=== PATIENT | female | born 1980 | race Caucasian/White ===

== ENCOUNTER → 2017-10-13 | Outpatient (CLI) | payer OTHER ==
--- NOTE | 2017-10-13 15:48 | MR ---
EXAMINATION TYPE: MR knee RT wo con DATE OF EXAM: 10/13/2017 COMPARISON: NONE HISTORY: Right Knee pain, Swelling, and Locking x6 years TECHNIQUE: Multiplanar, multisequence imaging of the right knee is performed without IV contrast. FINDINGS: MEDIAL MENISCUS: Moderate diffuse increased signal present within the posterior horn of the medial me niscus, linear signal does extend to the articular surface, there is pseudoextrusion of the medial me niscus LATERAL MENISCUS: Anterior and posterior horns are intact without tear. CRUCIATE LIGAMENTS: The anterior and posterior cruciate ligaments are intact and unremarkable. COLLATERAL LIGAMENTS: The medial collateral ligament and lateral collateral ligament complex are inta ct and unremarkable. EXTENSOR MECHANISM: Visualized quadriceps and patellar tendons are intact. EFFUSION: Suprapatellar increased signal is present compatible joint effusion extending laterally POPLITEAL CYST: No popliteal/millan cyst. TRICOMPARTMENT SPACES: Tricompartmental joint space loss present with associated marginal spurring CARTILAGE: Grade 3 to grade IV chondromalacia in the lateral compartment, grade III to grade 4 chondr omalacia medially, grade 3 to grade IV chondromalacia at the posterior patella BONE MARROW SIGNAL: Some reactive marrow edema present in the medial femoral condyle and inferior pat whitley medially. Correlate for history of trauma, difficult to exclude a fracture line at the inferior and medial aspect of the patella. Probable ganglion present at the level of the tibial spines. OTHER: Subcutaneous edema is noted. IMPRESSION: Suspect a fracture the inferior aspect of the patella. Osteoarthritis is significant. Tear of the pos terior horn the medial meniscus could be degenerative.
== END ==
LOC: RADMRIMAIN 12:52
PROVIDERS: ATTEND Family Medicine
DX: S83.241A Other tear of medial meniscus, current injury, right knee, initial encounter (principal); M17.11 Unilateral primary osteoarthritis, right knee